=== PATIENT | male | born 1960 | race Caucasian/White ===

== ENCOUNTER 2025-01-01 01:08 | Emergency (ER) | payer OTHER ==
[~2025-01-01] VITALS: Ht 162.6 cm; Wt 72.4 kg
[2025-01-01 01:18] VITALS: O2SAT 95
[2025-01-01] MEDS: ACETAMINOPHEN 325MG TABLET PO ONE (01:57)
[2025-01-01 02:01] LABS: BASOPHILS % 0.6 % (0.0-2.0); EOSINOPHILS % 0.4 % (0.0-5.0); HEMATOCRIT. 44.3 % (42.0-52.0); HEMOGLOBIN. 15.3 g/dL (14.0-18.0); LYMPHOCYTES % 10.6 % (20.0-50.0); MEAN CORPUSCULAR HGB CONC 34.5 g/dL (31.0-37.0); MEAN CORPUSCULAR VOLUME 86.9 fL (80.0-94.0); MEAN PLATELET VOLUME 8.7 fl (7.4-10.4); MONOCYTES % 7.9 % (2.0-8.0); NEUTROPHILS % 80.5 % (40.0-76.0); PLATELET 381 x1000/uL (130-400); RED CELL DISTRIBUTION WIDTH 13.7 % (11.6-14.6); WHITE BLOOD COUNT 19.1 x1000/uL (4.5-11.0)
[2025-01-01 02:12] LABS: CALCIUM 10.3 mg/dL (8.7-10.4)
[2025-01-01 02:16] LABS: CREATININE 1.4 mg/dL (0.6-1.3)
[2025-01-01 02:41] LABS: CLARITY URINE CLEAR (CLEAR); COLOR URINE YELLOW (YELLOW); GLUCOSE URINE 3+ (NEGATIVE); KETONES URINE NEGATIVE (NEGATIVE); LEUKOCYTE ESTERASE URINE NEGATIVE (NEGATIVE); NITRITE URINE NEGATIVE (NEGATIVE); OCCULT BLOOD URINE NEGATIVE (NEGATIVE); PROTEIN URINE 2+ (NEGATIVE); SPECIFIC GRAVITY URINE 1.026 (1.005-1.030); UROBILINOGEN URINE 0.2 E.U./dL (0.2-1.0)
[2025-01-01] MEDS: SODIUM CHLORIDE 0.9% 1,000 ML IV ONE (03:03)
[2025-01-01 03:51] LABS: SQUAMOUS EPITHELIAL CELL URINE NONE SEEN /lpf (RARE/1+)
[2025-01-01 03:52] LABS: BACTERIA URINE NONE SEEN; WBC URINE 0-2 /hpf (0-2)
[2025-01-01 04:01] VITALS: TEMP 37.2
[2025-01-01 04:26] LABS: HEMATOCRIT. 36.5 % (42.0-52.0); HEMOGLOBIN. 12.3 g/dL (14.0-18.0); MEAN CORPUSCULAR HEMOGLOBIN 29.5 pg (28.0-32.0); MEAN CORPUSCULAR HGB CONC 33.7 g/dL (31.0-37.0); MEAN CORPUSCULAR VOLUME 87.5 fL (80.0-94.0); MEAN PLATELET VOLUME 8.3 fl (7.4-10.4); PLATELET 262 x1000/uL (130-400); RED BLOOD CELL COUNT 4.17 mill/uL (4.7-6.1); RED CELL DISTRIBUTION WIDTH 13.8 % (11.6-14.6); WHITE BLOOD COUNT 15.6 x1000/uL (4.5-11.0)
[2025-01-01 04:30] LABS: DIFFERENTIAL COMMENT 1
[2025-01-01 04:59] LABS: POTASSIUM 4.4 mEq/L (3.5-5.1)
[2025-01-01 05:00] LABS: CALCIUM 8.6 mg/dL (8.7-10.4)
[2025-01-01 05:05] LABS: CREATININE 1.3 mg/dL (0.6-1.3)
[2025-01-01 05:40] VITALS: BP 131/73; PULSE 76; RESP 18; O2SAT 98
[2025-01-01 07:25] LABS: ATYPICAL LYMPHOCYTES 2
[2025-01-01 07:26] LABS: PLATELET ESTIMATE NORMAL
== END 2025-01-01 05:43 | disposition home or self-care (01) ==
LOC: ER 01:08
DX: R33.9 Retention of urine, unspecified (principal); E11.9 Type 2 diabetes mellitus without complications; I10 Essential (primary) hypertension; Z00.00 Encounter for general adult medical examination without abnormal findings; Z98.890 Other specified postprocedural states
CPT/HCPCS: 36415; 51702; 80048; 81003; 85025; 96360; 99284

== ENCOUNTER 2025-01-03 11:57 | Emergency (ER) | payer OTHER ==
[~2025-01-03] VITALS: Ht 162.6 cm; Wt 67.0 kg
[2025-01-03 12:12] VITALS: O2SAT 99
[2025-01-03 14:59] VITALS: BP 134/84; PULSE 82; RESP 16; TEMP 36.8; O2SAT 99
== END 2025-01-03 15:01 | disposition home or self-care (01) ==
LOC: ER 12:18
DX: R33.9 Retention of urine, unspecified (principal); E11.9 Type 2 diabetes mellitus without complications; I10 Essential (primary) hypertension; F10.90 Alcohol use, unspecified, uncomplicated; Y90.9 Presence of alcohol in blood, level not specified
CPT/HCPCS: 99281; 99283